=== PATIENT | male | born 1930 | race African-American/Black ===

== ENCOUNTER 2017-06-25 12:30 | Inpatient (IN) | payer MEDICARE, OTHER ==
[~2017-06-25] VITALS: Ht 167.6 cm; Wt 95.0 kg
[~2017-06-25 12:30] MED LIST: ACET500T68 PO; APIX5TAB3 PO; ATOR20TA58 PO; BRIM5DRO3 OP; CEPH-264 PO; CHOL10003 PO; CIPR250T30 PO; DONE10TA61 PO; FURO20TA3 PO; IPRA3AMP NEB; LATA2.5D3 OP; LEVO75TA5 PO; MEMA10TA PO; METO50TA6 PO; OMEP20CA9 PO; POTA20TA4 PO; TAMS0.4C2 PO; TRAZ50TA15 PO
[2017-06-25 13:09] LABS: BASO # 0.1 x10^3/uL (0.0-0.2); BASO % 1 % (0-3); EOS # 0.1 x10^3/uL (0.0-0.7); EOS % 2 % (0-3); HEMATOCRIT 40.4 % (39.0-53.0); HEMOGLOBIN 13.4 g/dL (13.0-17.5); LYMPH % 16 % (24-48); MEAN CORPUSCULAR HEMOGLOBIN 32 pg (25-35); MEAN CORPUSCULAR HGB CONC 33 g/dL (31-37); MEAN CORPUSCULAR VOLUME 97 fL (79-100); MONO # 0.4 x10^3/uL (0.0-1.1); MONO % 6 % (0-9); NEUT # 4.7 x10^3uL (1.8-7.7); NEUT % 74 % (31-73); PLATELET COUNT 170 x10^3/uL (140-400); RED BLOOD COUNT 4.17 x10^6/uL (4.30-5.70); RED CELL DISTRIBUTION WIDTH 15.4 % (11.5-14.5); WHITE BLOOD COUNT 6.3 x10^3/uL (4.0-11.0)
--- NOTE | 2017-06-25 13:21 | RAD ---
Portable chest, 06/25/2017: History: Altered level of consciousness Comparison is made to a study from 03/11/2013. The heart is at the upper limits of normal in size. The pulmonary vascularity is normal. A density at the cardiac apex is unchanged and is probably due to a prominent epicardial fat pad. No acute pulmonary infiltrate is seen. No pleural fluid is evident. Moderate degenerative change is present at the right shoulder. IMPRESSION: No acute cardiopulmonary abnormality is detected.
[2017-06-25 13:32] LABS: ALBUMIN 2.6 g/dL (3.4-5.0); ALBUMIN/GLOBULIN RATIO 0.7 (1.0-1.7); ALK PHOS 75 U/L (46-116); ALT (SGPT) 33 U/L (16-63); ANION GAP 5 (6-14); AST (SGOT) 12 U/L (15-37); BLOOD UREA NITROGEN 13 mg/dL (8-26); BUN/CREATININE RATIO 11 (6-20); CALCIUM 8.5 mg/dL (8.5-10.1); CARBON DIOXIDE 30 mmol/L (21-32); CHLORIDE 112 mmol/L (98-107); CREATINE KINASE 34 U/L (39-308); CREATININE 1.2 mg/dL (0.7-1.3); GFR 69.6; GLUCOSE 118 mg/dL (70-99); MAGNESIUM 1.9 mg/dL (1.8-2.4); POTASSIUM 3.8 mmol/L (3.5-5.1); SODIUM 147 mmol/L (136-145); TOTAL BILIRUBIN 0.9 mg/dL (0.2-1.0); TOTAL PROTEIN 6.1 g/dL (6.4-8.2)
--- NOTE | 2017-06-25 13:36 | RAD ---
CT head without contrast History: Change and unresponsiveness Comparison: None. Procedure: Axial images are obtained of the head from the skull base through the vertex without IV contrast. Findings: Mild bilateral periventricular white matter hypodensities likely chronic small vessel ischemic disease. Small hypodensity identified in the right basal ganglia likely old lacunar infarct. Mild age-related cerebral atrophic changes. The ventricles and sulci are normal for the patient's age. No mass-effect, intracranial mass, midline shift, hemorrhage or obvious acute infarction is identified. Basilar cisterns are patent. Bone windows demonstrate no significant calvarial abnormality. Complete opacification of the left maxillary sinus. Impression: 1. No acute intracranial process. 2. Complete opacification of the left maxillary sinus likely sinus disease. PQRS Compliance Statement: One or more of the following individualized dose reduction techniques were utilized for this examination: 1. Automated exposure control 2. Adjustment of the mA and/or kV according to patient size 3. Use of iterative reconstruction technique
[2017-06-25] MEDS ORDERED: IV 1/2 NORMAL SALINE 1,000 ML IV ONE (13:45)
--- NOTE | 2017-06-25 14:28 | PHYS DOC ---
Past History Past Medical History: A-Fib, CHF, Dementia, GERD, Glaucoma, Heart Disease, Hypertension, Hypothyroid, Pneumonia, Renal Disease, UTI Past Surgical History: Tonsillectomy Alcohol Use: None Drug Use: None Adult General Chief Complaint Chief Complaint: ALTERED MENTAL STATUS HPI HPI 86 -year-old male patient with history of dementia and resident of long term was seen by his nurse 3 days ago in his usual condition but this morning he was not talking to eating his food or taking his medication. EMS reported that patient had stable vital signs. Patient does not talk and keeps his eyes closed. Review of Systems Review of Systems ROS: Unable to obtain because of dementia and uncooperative patient and ALOC Current Medications Current Medications Current Medications Medications (Trade) Dose Ordered Sig/Juan Daniel Start Time Stop Time Status Last Admin Dose Admin Sodium Chloride 1,000 ml @ 75 mls/hr 1X ONCE 06/25/17 13:45 06/26/17 03:04 06/25/17 14:01 75 MLS/HR Allergies Allergies Allergies Coded Allergies Type Severity Reaction Last Updated Verified shrimp Allergy Intermediate 03/11/16 Yes tramadol Allergy Unknown 06/25/17 Yes Physical Exam Physical Exam Constitutional: uncooperative no acute distress, non-toxic appearance. [] HENT: Unable to evaluate, patient keeps his eyes closed and does not open his mouth Neck: no tenderness, supple, no stridor. [] Cardiovascular:Irregularly irregular Lungs & Thorax: Bilateral breath sounds clear to auscultation [] Abdomen: Bowel sounds normal, soft, no tenderness, no masses, no pulsatile masses. [] Skin: Warm, dry, no erythema, no rash. [] Back: No tenderness, no CVA tenderness. [] Extremities:uncooperative, unable to evaluate Neurologic: [uncooperative, unable to evaluate Current Patient Data Vital Signs Vital Signs Date Time Temp Pulse Resp B/P (MAP) Pulse Ox O2 Delivery O2 Flow Rate FiO2 06/25/17 12:30 98.5 82 18 97 Nasal Cannula 2.0 Lab Results Laboratory Tests Test 06/25/17 12:52 White Blood Count 6.3 x10^3/uL (4.0-11.0) Red Blood Count 4.17 x10^6/uL (4.30-5.70) L Hemoglobin 13.4 g/dL (13.0-17.5) Hematocrit 40.4 % (39.0-53.0) Mean Corpuscular Volume 97 fL (79-100) Mean Corpuscular Hemoglobin 32 pg (25-35) Mean Corpuscular Hemoglobin Concent 33 g/dL (31-37) Red Cell Distribution Width 15.4 % (11.5-14.5) H Platelet Count 170 x10^3/uL (140-400) Neutrophils (%) (Auto) 74 % (31-73) H Lymphocytes (%) (Auto) 16 % (24-48) L Monocytes (%) (Auto) 6 % (0-9) Eosinophils (%) (Auto) 2 % (0-3) Basophils (%) (Auto) 1 % (0-3) Neutrophils # (Auto) 4.7 x10^3uL (1.8-7.7) Lymphocytes # (Auto) 1.0 x10^3/uL (1.0-4.8) Monocytes # (Auto) 0.4 x10^3/uL (0.0-1.1) Eosinophils # (Auto) 0.1 x10^3/uL (0.0-0.7) Basophils # (Auto) 0.1 x10^3/uL (0.0-0.2) Prothrombin Time 12.5 SEC (9.4-11.4) H Prothrombin Time INR 1.2 (0.9-1.1) H PTT 28 SEC (23-33) Sodium Level 147 mmol/L (136-145) H Potassium Level 3.8 mmol/L (3.5-5.1) Chloride Level 112 mmol/L (98-107) H Carbon Dioxide Level 30 mmol/L (21-32) Anion Gap 5 (6-14) L Blood Urea Nitrogen 13 mg/dL (8-26) Creatinine 1.2 mg/dL (0.7-1.3) Estimated GFR (Cockcroft-Gault) 69.6 BUN/Creatinine Ratio 11 (6-20) Glucose Level 118 mg/dL (70-99) H Lactic Acid Level 1.2 mmol/L (0.4-2.0) Calcium Level 8.5 mg/dL (8.5-10.1) Magnesium Level 1.9 mg/dL (1.8-2.4) Total Bilirubin 0.9 mg/dL (0.2-1.0) Aspartate Amino Transferase (AST) 12 U/L (15-37) L Alanine Aminotransferase (ALT) 33 U/L (16-63) Alkaline Phosphatase 75 U/L (46-116) Creatine Kinase 34 U/L (39-308) L Creatine Kinase MB (Mass) < 0.5 ng/mL (0.0-3.6) Creatine Kinase MB Relative Index 1.5 % (0-4) Troponin I Quantitative < 0.017 ng/mL (0-0.055) RP-Egq-W-Type Natriuretic Peptide 1600 pg/mL (0-449) H Total Protein 6.1 g/dL (6.4-8.2) L Albumin 2.6 g/dL (3.4-5.0) L Albumin/Globulin Ratio 0.7 (1.0-1.7) L EKG EKG EKG interpreted by me. EKG at 1239 showed atrial fibrillation at rate of 85, abnormal right axis deviation, nonspecific intraventricular block, right ventricular hypertrophy,[] Radiology/Procedures Radiology/Procedures [] Course & Med Decision Making Course & Med Decision Making Pertinent Labs and Imaging studies reviewed. (See chart for details) [Evaluation of patient in ER showed 86-year-old male patient resident of long term with history of dementia brought in because of altered level of consciousness for 3 days. Patient refused to talk but off and on talked to the RN and stated he does not want to eat or talk to his staff. Patient had mild hyponatremia and hypokalemia with dehydration and half normal saline 500 mL bolus was given.Dr Grant consulted at 1424 and recommended to admit the patient to his service. Dragon Disclaimer Dragon Disclaimer This electronic medical record was generated, in whole or in part, using a voice recognition dictation system. Departure Departure: Impression: Primary Impression: Altered mental status Additional Impressions: Hypernatremia Dehydration CHF (congestive heart failure) Disposition: 09 ADMITTED INPATIENT (At 1428) Condition: IMPROVED Referrals: PHYLLIS COLE MD (PCP) Problem Qualifiers ALONZO SMITH MD Jun 25, 2017 14:28
[2017-06-25 14:50] LABS: BILIRUBIN,URINE NEG (NEG); CLARITY,URINE CLEAR; COLOR,URINE AMBER; GLUCOSE,URINE NEG (NEG); NITRITE,URINE NEG (NEG); UROBILINOGEN,URINE 8 mg/dL (0.2 mg/dL)
[2017-06-25 14:51] LABS: BACTERIA,URINE 0 /HPF (0-FEW); SQUAMOUS EPITHELIAL CELL,UR FEW /LPF; WBC,URINE OCC /HPF (0-4)
[2017-06-25 15:54] VITALS: BP 142/85
[2017-06-25] MEDS ORDERED: CITA20TA5 PO (16:10)
[2017-06-25] MEDS ORDERED: HALOPERIDOL 5 MG/ML IM (16:10)
[2017-06-25] MEDS ORDERED: HALO2TAB PO (16:14)
[2017-06-25] MEDS ORDERED: CHOL10003 PO (16:18)
[2017-06-25] MEDS ORDERED: PANT40TA3 PO (16:18)
--- NOTE | 2017-06-25 16:21 | EKG ---
[address] [address] Test Date: 2017-06-25 Test Time: 12:39:39 Pat Name: POLINA AYALA Department: Room: Gender: M Ticket Marker: YONI : 1930 Requested By: ALONZO SMITH Order Number: [id number] Reading MD: Measurements Intervals [place] Rate: 85 P: DE: QRS: 178 QRSD: 144 T: -116 QT: 418 QTc: 498 Interpretive Statements IRREGULAR RHYTHM, NO P-WAVE FOUND ABNORMAL RIGHT AXIS DEVIATION LOW LIMB LEAD VOLTAGE S1,S2,S3 PATTERN NON SPECIFIC INTRAVENTRICULAR BLOCK CONSIDER RIGHT VENTRICULAR HYPERTROPHY QRS(T) CONTOUR ABNORMALITY CONSISTENT WITH ANTEROSEPTAL INFARCT PROBABLY OLD ABNORMAL ECG RI6.01 Unconfirmed report No previous ECG available for comparison
[2017-06-25] MEDS ORDERED: IV 1/2 NORMAL SALINE 1,000 ML IV PRN (18:15)
[2017-06-25] MEDS ORDERED: IPRATRPIUM/ALBUTEROL 0.5/2.5MG 3 ML NEBU. NEB PRN (18:15)
[2017-06-25] MEDS ORDERED: HALOPERIDOL 2 MG TABLET PO PRN (18:15)
[2017-06-25] MEDS ORDERED: HALOPERIDOL LACT 5 MG/ML VIAL. IM PRN (18:30)
--- NOTE | 2017-06-25 18:34 | NUR ---
NSG NOTE; ADMISSION ADMIT TO ROOM 124 FROM ED AT 1540 VIA CART ACCOMP BY EMS PERSONNEL. PT NOT ANSWERING QUESTIONS SO HIS ADMIT WAS COMPLETED USING INFO FROM [facility] AND TALKING TO ANTONIO EWING THERE. PT REFUSING FLUIDS AND FOOD SO BEDSIDE SWALLOW SCREEN WAS NOT OBTAINED AT THIS TIME
[2017-06-25 19:25] VITALS: BP 134/81
[2017-06-25] MEDS: APIXABAN 5 MG TABLET. PO SCH (20:08)
[2017-06-25] MEDS: DONEPEZIL HCL 10 MG TABLET PO SCH (20:08)
[2017-06-25] MEDS: METOPROLOL TART IMMED RELEASE 50 MG TABLET PO SCH (20:08)
[2017-06-25] MEDS: BRIMONIDINE 0.2% OPHTH SOLUTION 5ML BOTTLE. OU SCH (20:09)
[2017-06-25] MEDS: TAMSULOSIN 0.4 MG CAP.ER.24H. PO SCH (20:09)
[2017-06-25] MEDS: LATANOPROST 0.005% OPHTH SOLUTION 2.5ML BOTTLE. OU SCH (20:09)
[2017-06-25] MEDS: ATORVASTATIN CALCIUM 20 MG TABLET PO SCH (20:09)
[2017-06-25] MEDS ORDERED: traZODone 50 MG TABLET. PO SCH (21:00)
[2017-06-25] MEDS: LACTOBACILLUS RHAMNOSUS GG 1 CAPSULE. PO SCH (21:00)
[2017-06-25 23:09] VITALS: BP 134/75
[2017-06-26 06:13] VITALS: BP 120/76
[2017-06-26 06:16] LABS: ALBUMIN 2.6 g/dL (3.4-5.0); ALBUMIN/GLOBULIN RATIO 0.7 (1.0-1.7); CALCIUM 8.4 mg/dL (8.5-10.1); CREATININE 1.1 mg/dL (0.7-1.3); POTASSIUM 3.5 mmol/L (3.5-5.1); TOTAL PROTEIN 6.1 g/dL (6.4-8.2)
[2017-06-26] MEDS: PANTOPRAZOLE 40 MG TABLET. PO SCH (06:32)
[2017-06-26] MEDS: LEVOTHYROXINE 75 MCG TABLET PO SCH (06:32)
[2017-06-26] MEDS: CHOLECALCIFEROL (VITAMIN D3) 1,000 UNIT TABLET PO SCH (08:42)
[2017-06-26] MEDS: FUROSEMIDE 20 MG TABLET PO SCH (08:42)
[2017-06-26] MEDS: LACTOBACILLUS RHAMNOSUS GG 1 CAPSULE. PO SCH ×2 (08:42→20:39)
[2017-06-26] MEDS: APIXABAN 5 MG TABLET. PO SCH ×2 (08:42→20:39)
[2017-06-26] MEDS: POTASSIUM CHLORIDE 20 MEQ TABLET.ER. PO SCH (08:42)
[2017-06-26] MEDS: BRIMONIDINE 0.2% OPHTH SOLUTION 5ML BOTTLE. OU SCH ×2 (08:43→20:40)
[2017-06-26] MEDS: MEMANTINE 10 MG TABLET. PO SCH (08:43)
[2017-06-26] MEDS: CITALOPRAM 20 MG TABLET. PO SCH (08:43)
[2017-06-26] MEDS: METOPROLOL TART IMMED RELEASE 50 MG TABLET PO SCH ×2 (08:43→20:39)
[2017-06-26 10:56] VITALS: BP 148/82
--- NOTE | 2017-06-26 11:06 | HP ---
ADMIT DATE: 06/25/2017 HISTORY OF PRESENT ILLNESS: An 86-year-old gentleman came in with change in mental status. Apparently, he was going to be admitted at the [facility]. They were on diversion. The patient basically was unresponsive for some time, was not talking at all. As a result of this, the patient was brought to the Emergency Room and admitted for change in mental status. PAST MEDICAL HISTORY: Chronic atrial fibrillation, chronic congestive heart failure, dementia, GERD, glaucoma, heart disease, hypertension, hypothyroidism, pneumonia, renal disease, urinary tract infection. PAST SURGICAL HISTORY: Tonsillectomy. SOCIAL HISTORY: The patient used to be a heavy smoker, quit about 2-3 years ago. Denies alcohol use presently and is a DNR. FAMILY HISTORY: Noncontributory in this situation. ALLERGIES: The patient has allergies to SHRIMP AND TRAMADOL. MEDICATIONS: Eliquis 5 mg b.i.d., Lipitor 20, Alphagan eye drops t.i.d., vitamin D3, Celexa 20, Aricept 10, furosemide 20, haloperidol 1 mg every 4 hours, DuoNeb, eyedrops, levothyroxine sodium, Namenda 10 mg daily, metoprolol 50 mg b.i.d., Protonix 40 mg daily, potassium chloride 20 mEq daily, Flomax 0.4 mg ____ at bedtime, trazodone 50 mg at bedtime and Haldol 1 mg IM q.4 hours p.r.n. for agitation. REVIEW OF SYSTEMS: Presently, the patient is unable to give any review of systems as he is basically unresponsive. PHYSICAL EXAMINATION: GENERAL: Afro-Armenian gentleman in no apparent distress. VITAL SIGNS: Blood pressure 130/80, respiratory rate 20, pulse 90, afebrile. HEENT: The patient's head was atraumatic, normocephalic. Eyes: PERRLA without jaundice. Mouth and throat show poor dentition. NECK: Supple, without JVD, carotid bruits. No thyromegaly. LUNGS: Diminished, poor movement of air. CARDIOVASCULAR: Regular rhythm. ABDOMEN: Soft, nontender, no rebound or guarding. Positive bowel sounds. EXTREMITIES: No clubbing, cyanosis, or edema. NEUROLOGIC: The patient was alert and oriented x 3. LABORATORY DATA: Showed elevated sodium of 147. Blood sugar slightly elevated, BNP elevated to 1600. White count 6, hemoglobin and hematocrit 13 and 40. IMAGING STUDIES: Chest x-ray was unremarkable. CT scan basically unchanged except for complete opacification of the left maxillary sinus consistent with severe sinusitis. IMPRESSION: Change in mental status, pansinusitis, [id number] protein malnutrition, hypernatremia. PLAN: As above. Continue to monitor the patient accordingly, make further evaluation as indicated. Give him IV fluids, IV antibiotics with infection and try to get nutritional supplementation. MONTY GOLDMAN MD DR: CLARISSA/neel JOB#: [id number] / [id number]
[2017-06-26] MEDS: DRONABINOL 2.5 MG CAPSULE PO SCH ×2 (11:43→16:54)
[2017-06-26 14:34] VITALS: BP 126/73
[2017-06-26 19:13] VITALS: BP_SYST 107; BP_SYST 144; BP_DIAS 63; BP_DIAS 73
[2017-06-26 20:37] VITALS: BP 112/73
[2017-06-26] MEDS: DONEPEZIL HCL 10 MG TABLET PO SCH (20:39)
[2017-06-26] MEDS: MIRTAZAPINE 30 MG TABLET PO SCH (20:39)
[2017-06-26] MEDS: TAMSULOSIN 0.4 MG CAP.ER.24H. PO SCH (20:39)
[2017-06-26] MEDS: ATORVASTATIN CALCIUM 20 MG TABLET PO SCH (20:40)
[2017-06-26] MEDS: LATANOPROST 0.005% OPHTH SOLUTION 2.5ML BOTTLE. OU SCH (20:41)
[2017-06-26 22:55] VITALS: BP 134/79
[2017-06-27 05:41] VITALS: BP 114/72
[2017-06-27] MEDS: LEVOTHYROXINE 75 MCG TABLET PO SCH (06:02)
[2017-06-27] MEDS: PANTOPRAZOLE 40 MG TABLET. PO SCH ×2 (06:02→08:22)
[2017-06-27 06:30] LABS: BASO # 0.1 x10^3/uL (0.0-0.2); BASO % 1 % (0-3); EOS # 0.1 x10^3/uL (0.0-0.7); EOS % 1 % (0-3); HEMATOCRIT 43.8 % (39.0-53.0); HEMOGLOBIN 14.4 g/dL (13.0-17.5); LYMPH # 0.3 x10^3/uL (1.0-4.8); LYMPH % 4 % (24-48); MEAN CORPUSCULAR HEMOGLOBIN 32 pg (25-35); MEAN CORPUSCULAR HGB CONC 33 g/dL (31-37); MEAN CORPUSCULAR VOLUME 97 fL (79-100); MONO # 0.5 x10^3/uL (0.0-1.1); MONO % 8 % (0-9); NEUT # 6.1 x10^3uL (1.8-7.7); NEUT % 87 % (31-73); PLATELET COUNT 156 x10^3/uL (140-400); RED BLOOD COUNT 4.53 x10^6/uL (4.30-5.70); RED CELL DISTRIBUTION WIDTH 14.8 % (11.5-14.5)
[2017-06-27 06:35] LABS: CALCIUM 8.7 mg/dL (8.5-10.1); CREATININE 1.3 mg/dL (0.7-1.3); GFR 63.5; POTASSIUM 3.4 mmol/L (3.5-5.1)
[2017-06-27] MEDS: CHOLECALCIFEROL (VITAMIN D3) 1,000 UNIT TABLET PO SCH (08:22)
[2017-06-27] MEDS: APIXABAN 5 MG TABLET. PO SCH ×2 (08:22→20:13)
[2017-06-27] MEDS: MEMANTINE 10 MG TABLET. PO SCH (08:22)
[2017-06-27] MEDS: LACTOBACILLUS RHAMNOSUS GG 1 CAPSULE. PO SCH ×2 (08:22→20:13)
[2017-06-27] MEDS: CITALOPRAM 20 MG TABLET. PO SCH (08:23)
[2017-06-27] MEDS: FUROSEMIDE 20 MG TABLET PO SCH (08:23)
[2017-06-27] MEDS: POTASSIUM CHLORIDE 20 MEQ TABLET.ER. PO SCH (08:23)
[2017-06-27] MEDS: BRIMONIDINE 0.2% OPHTH SOLUTION 5ML BOTTLE. OU SCH ×3 (08:24→20:17)
[2017-06-27] MEDS: METOPROLOL TART IMMED RELEASE 50 MG TABLET PO SCH ×2 (08:25→20:13)
[2017-06-27] MEDS: ACETAMINOPHEN 325 MG TABLET PO PRN ×2 (08:28→17:44)
--- NOTE | 2017-06-27 09:35 | NUR ---
Attempted to administer PO medications to pt, pt took one pill but refused to open his mouth for all other medications. Student nurse sat down with pt to attempt to get pt to take medications but no success. This nurse asked pt if he know where he was, pt said, "no," and then asked pt what his name was, pt stated, "no." Will attempt medications again later. Will CTM.
[2017-06-27 10:11] VITALS: BP 109/70
[2017-06-27] MEDS ORDERED: LACT1CAP19 PO (10:13)
[2017-06-27] MEDS ORDERED: CIPR500T94 PO (10:13)
--- NOTE | 2017-06-27 10:22 | NUR ---
Called to give report to ARNULFO Powell at [facility] in [place]. No questions or concerns, apple picking supervisor time in approx one hour. PLATE SHEAR OPERATOR and student nurses dressing pt and gathering belongings together at this time. Will CTM.
--- NOTE | 2017-06-27 10:43 | NUR ---
Call recieved from lab at [facility] on blood cultures that were drawn on 06/25. Gram + cocci in 1/[address] Grant and orders received to cancel discharge. Will CTM.
[2017-06-27] MEDS: DRONABINOL 2.5 MG CAPSULE PO SCH ×2 (11:57→16:07)
[2017-06-27 15:01] VITALS: BP 129/81
--- NOTE | 2017-06-27 15:44 | NUR ---
Nursing Note: Patient refused PICC line placement or new IV. Dr. Grant notified of refusals and that patient is refusing medications and vital signs at this time. Continue to encourage patient to take medications and allow cares.
[2017-06-27] MEDS ORDERED: levoFLOXacin 500 MG TABLET PO SCH (17:00)
--- NOTE | 2017-06-27 17:09 | NUR ---
Nursing Note: Patient agreed to take evening Marinol and allowed this nurse to administer his eye drops. When asked again by this nurse if the patient would be agreeable to an IV, the patient refused. Dr. Grant spoke with the patient and patient agreed to take oral antibiotics but continued to refuse IV or PICC line. Dr. Grant asked the patient if he would be interested in hospice and care and the patient refused. When this nurse attempted to administer oral antibiotic, the patient refused it. Will continue to encourage patient to take medications and continue to monitor.
--- NOTE | 2017-06-27 17:52 | NUR ---
Nursing Note: Patient agreed to take oral Levaquin and after several attempts, patient agreed to take Tylenol for fever. Patient continues to refuse IV or PICC line. IV Rocephin dose non-administered d/t no IV access.
[2017-06-27 18:09] VITALS: BP 132/77
[2017-06-27] MEDS: DONEPEZIL HCL 10 MG TABLET PO SCH (20:12)
[2017-06-27] MEDS: MIRTAZAPINE 30 MG TABLET PO SCH (20:12)
[2017-06-27] MEDS: ATORVASTATIN CALCIUM 20 MG TABLET PO SCH (20:13)
[2017-06-27] MEDS: TAMSULOSIN 0.4 MG CAP.ER.24H. PO SCH (20:13)
[2017-06-27] MEDS: LATANOPROST 0.005% OPHTH SOLUTION 2.5ML BOTTLE. OU SCH (20:18)
--- NOTE | 2017-06-27 20:20 | NUR ---
Nursing Note: Pt agreed to take evening medication with encouragement, but refused HS eye drops. Encouraged pt to have a couple drinks of water or boost, pt refused and rolled back on his side.
[2017-06-27 22:09] VITALS: BP 129/85
[2017-06-28] MEDS: ACETAMINOPHEN 325 MG TABLET PO PRN (01:03)
[2017-06-28 05:01] VITALS: BP 154/94
[2017-06-28] MEDS: LEVOTHYROXINE 75 MCG TABLET PO SCH (05:53)
--- NOTE | 2017-06-28 07:15 | PN ---
DATE: 06/27/2017 SUBJECTIVE: An 86-year-old male patient who has been running a temperature and elevated heart rate. The patient, however, is refusing all medical care, does not want to take any IV antibiotic therapy. He also refused having a PICC line placed. I tried to explain to him the importance of all this. He absolutely refuses to take on any of the IV medications. We will switch him over to oral antibiotics and hope for the best, but right now the patient is refusing to cooperate with the nursing staff and noncompliant with his medications and treatment plan here at the hospital. We will do the best we can with oral medications. OBJECTIVE: VITAL SIGNS: Blood pressure 130/80, respiratory rate 20, pulse 108, temperature 99.9. HEENT: The patient's head was atraumatic, normocephalic. Eyes: PERRLA without jaundice. Mouth and throat: Normal. NECK: Supple. LUNGS: Diminished, but clear. CARDIOVASCULAR: Stable. ABDOMEN: Soft, nontender. IMPRESSION: Systemic inflammatory response syndrome and possible pansinusitis as the cause of this noncompliance. PLAN: The patient will continue on oral antibiotics and make further evaluation on him as indicated. He will hopefully be ready for discharge in the a.m. MONTY GOLDMAN MD DR: CLARISSA/neel JOB#: [id number] / [id number]
[2017-06-28] MEDS: BRIMONIDINE 0.2% OPHTH SOLUTION 5ML BOTTLE. OU SCH (08:50)
[2017-06-28] MEDS: POTASSIUM CHLORIDE 20 MEQ TABLET.ER. PO SCH (09:00)
[2017-06-28] MEDS: CHOLECALCIFEROL (VITAMIN D3) 1,000 UNIT TABLET PO SCH (09:00)
[2017-06-28] MEDS: CITALOPRAM 20 MG TABLET. PO SCH (09:00)
[2017-06-28] MEDS: METOPROLOL TART IMMED RELEASE 50 MG TABLET PO SCH (09:00)
[2017-06-28] MEDS: FUROSEMIDE 20 MG TABLET PO SCH (09:00)
[2017-06-28] MEDS: APIXABAN 5 MG TABLET. PO SCH (09:00)
[2017-06-28] MEDS: LACTOBACILLUS RHAMNOSUS GG 1 CAPSULE. PO SCH (09:00)
[2017-06-28] MEDS: MEMANTINE 10 MG TABLET. PO SCH (09:00)
[2017-06-28 10:14] VITALS: BP 102/61
[2017-06-28] MEDS: DRONABINOL 2.5 MG CAPSULE PO SCH (11:30)
--- NOTE | 2017-06-28 12:19 | NUR ---
Discharge Note: [facility] Discharge instructions and discharge home medications reviewed with Other facility and a copy given. All questions have been answered and understanding verbalized. The following instructions and handouts were given: Medications, follow-up, activity, and diet. Discharge packet sent to facility with transportation. Discontinued lines and drains: No IV to discontinue Patient discharged to [facility] with [facility].
== END 2017-06-28 12:15 | disposition home or self-care (01) | DRG 70 ==
LOC: ER 12:30 → 1 SOUTH 14:28
PROVIDERS: ADMIT Family Medicine; ATTEND Family Medicine
DX: G93.41 Metabolic encephalopathy (principal); E43 Unspecified severe protein-calorie malnutrition; E87.0 Hyperosmolality and hypernatremia; I11.0 Hypertensive heart disease with heart failure; I48.2 Chronic atrial fibrillation; R65.10 Systemic inflammatory response syndrome (SIRS) of non-infectious origin without acute organ dysfunction; I50.9 Heart failure, unspecified; E86.0 Dehydration; F03.90 Unspecified dementia, unspecified severity, without behavioral disturbance, psychotic disturbance, mood disturbance, and anxiety; E03.9 Hypothyroidism, unspecified; H40.9 Unspecified glaucoma; J32.4 Chronic pansinusitis; Z66 Do not resuscitate; K21.9 Gastro-esophageal reflux disease without esophagitis; Z87.891 Personal history of nicotine dependence; Z87.01 Personal history of pneumonia (recurrent); Z87.440 Personal history of urinary (tract) infections; Z90.49 Acquired absence of other specified parts of digestive tract; Z88.8 Allergy status to other drugs, medicaments and biological substances; Z91.013 Allergy to seafood; Z68.33 Body mass index [BMI] 33.0-33.9, adult; Z91.14 Patient's other noncompliance with medication regimen
CPT/HCPCS: 36415; 51702; 70450; 71010; 80048; 80053; 81001; 82553; 82607; 83605; 83735; 83880; 84443; 84484; 85025; 85610; 85730; 87040; 87205; 87641; 93005; J0696; J7030; Q0167; 99285-25